=== PATIENT | female | born 1955 | race African-American/Black ===

== ENCOUNTER 2017-05-14 09:04 | Emergency (ER) | payer OTHER | END 2017-05-14 09:45 | disposition home or self-care (01) | LOC: MADERS 09:04 | DX: S39.012A Strain of muscle, fascia and tendon of lower back, initial encounter (principal); M19.071 Primary osteoarthritis, right ankle and foot; H65.01 Acute serous otitis media, right ear; I10 Essential (primary) hypertension; F32.9 Major depressive disorder, single episode, unspecified; Z79.899 Other long term (current) drug therapy; X58.XXXA Exposure to other specified factors, initial encounter | CPT/HCPCS: 99283 ==

== ENCOUNTER 2017-10-20 08:06 | Emergency (ER) | payer OTHER ==
[2017-10-20] MEDS ORDERED: Benzonatate 100 MG CAP ONE (09:44)
[2017-10-20] MEDS ORDERED: Dexamethasone 4 MG TAB ONE (09:44)
[2017-10-20] MEDS ORDERED: HYDROcodone/Acetaminophen 5/325 mg Tablet ONE (09:44)
--- NOTE | 2017-10-20 10:40 | RAD ---
TWO VIEW CHEST: INDICATIONS: Cough. COMPARISON: 12/21/2015 FINDINGS: The lungs are clear. The cardiac silhouette is at the upper limits of normal in size. No effusion o r discrete pneumothorax. The osseous structures are intact. IMPRESSION: No focal consolidation. POS: [facility]
== END 2017-10-20 09:45 | disposition home or self-care (01) ==
LOC: MADERS 08:06
DX: J06.9 Acute upper respiratory infection, unspecified (principal); Z79.899 Other long term (current) drug therapy
CPT/HCPCS: 71046; J8540

== ENCOUNTER 2020-06-24 11:45 | Outpatient (CLI) | payer OTHER ==
--- NOTE | 2020-06-24 12:07 | RAD ---
XR Knee Lt 3 View: 06/24/2020 11:51 AM CLINICAL INDICATION: Chronic left knee pain COMPARISON: None. FINDINGS: Bones: No acute fracture is demonstrated. Joints: There are moderate marginal osteophytes affecting the major compartments of the left knee casper nt. No joint capsular distention is evident.. Soft Tissue: No acute abnormality.. IMPRESSION: Moderate left knee osteoarthrosis. No acute fracture or subluxation demonstrated..
== END 2020-06-24 11:46 | disposition home or self-care (01) ==
LOC: MADRAD 11:45
PROVIDERS: ATTEND Family Medicine
DX: M25.562 Pain in left knee (principal); G89.29 Other chronic pain; M17.12 Unilateral primary osteoarthritis, left knee

== ENCOUNTER 2020-07-24 11:45 | Emergency (ER) | payer OTHER ==
[2020-07-24 12:21] LABS: #Basophils 0.1 thou/uL (0.0-0.2); #Eosinphils 0.1 thou/uL (0.0-0.7); #Lymphocytes 2.5 thou/uL (1.20-3.40); #Monocytes 0.6 thou/uL (0.11-0.59); #Neutrophils 3.8 thou/uL (1.40-6.50); %Eosinophils 0.9 % (0.0-10.0); %Lymphocytes 35.8 % (21.0-51.0); %Monocytes 8.3 % (0.0-10.0); %Neutrophils 54.1 % (42.0-75.0); Hemoglobin 13.4 g/dL (12.0-16.0); Mean Corpuscular HGB CONC 31.1 g/dL (32.0-36.0); Mean Corpuscular Hemoglobin 27.7 pg (27.0-31.0); Mean Corpuscular Volume 88.9 fL (78.0-98.0); Mean Platelet Volume 9.4 fL (7.4-10.4); Platelet Count 242 thou/uL (130-400); RBC Distribution Width 12.1 % (11.5-14.5); Red Blood Cell (RBC) Count 4.84 mill/uL (4.20-5.40)
--- NOTE | 2020-07-24 12:24 | RAD ---
Chest one view HISTORY: Chest pain. COMPARISON: 10/20/2017. FINDINGS: Cardiac silhouette and pulmonary vasculature are unremarkable. Mediastinum is midline. No c onfluent airspace consolidation or evidence of pneumothorax. IMPRESSION : No abnormalities are demonstrated.
[2020-07-24 12:35] LABS: ALT (SGPT) 13 U/L (8-55); AST (SGOT) 10 U/L (5-34); Albumin 4.3 g/dL (3.4-4.8); Alkaline Phosphatase 75 U/L (40-110); Anion Gap 17 mmol/L (10-20); BUN (Urea Nitrogen) 9 mg/dL (9.8-20.1); Bilirubin, Total 0.6 mg/dL (0.2-1.2); Calc. Creatinine Clearance 0 mL/min (70-130); Calcium 9.3 mg/dL (7.8-10.44); Carbon Dioxide 27 mmol/L (23-31); Chloride 103 mmol/L (98-107); Estimated GFR-MDRD Greater than 90; Globulin 3.2 g/dL (2.4-3.5); Glucose 106 mg/dL (80-115); Potassium 3.7 mmol/L (3.5-5.1); Protein, Total 7.5 g/dL (6.0-8.3); Sodium 143 mmol/L (136-145)
== END 2020-07-24 13:18 | disposition home or self-care (01) ==
LOC: MADERS 11:45
DX: R07.2 Precordial pain (principal); I10 Essential (primary) hypertension; K21.9 Gastro-esophageal reflux disease without esophagitis; Z79.899 Other long term (current) drug therapy
CPT/HCPCS: 71045; 80053; 84484; 85025; 93005

== ENCOUNTER 2021-02-15 18:57 | Emergency (ER) | payer OTHER ==
[2021-02-15] MEDS ORDERED: Bacitracin 1 PK ONE ×2 (20:22→20:40)
[2021-02-15] MEDS ORDERED: Boostrix 0.5 ML (Tdap) VIAL ONE (20:22)
[2021-02-15] MEDS ORDERED: Lidocaine 1% w/Epinephrine 1:100K 20 ML VIAL ONE (20:22)
== END 2021-02-15 21:01 | disposition home or self-care (01) ==
LOC: MADERS 18:57
DX: S01.01XA Laceration without foreign body of scalp, initial encounter (principal); E78.5 Hyperlipidemia, unspecified; I10 Essential (primary) hypertension; F17.220 Nicotine dependence, chewing tobacco, uncomplicated; K21.9 Gastro-esophageal reflux disease without esophagitis; Z79.899 Other long term (current) drug therapy; W18.30XA Fall on same level, unspecified, initial encounter
CPT/HCPCS: 12002; 70450; 72125; 90471; 90715

== ENCOUNTER 2021-02-26 08:42 | Emergency (ER) | payer OTHER | END 2021-02-26 09:30 | disposition home or self-care (01) | LOC: MADERS 08:42 | DX: M79.622 Pain in left upper arm (principal); S01.01XD Laceration without foreign body of scalp, subsequent encounter; K21.9 Gastro-esophageal reflux disease without esophagitis; E78.5 Hyperlipidemia, unspecified; I10 Essential (primary) hypertension; F17.220 Nicotine dependence, chewing tobacco, uncomplicated; Z79.899 Other long term (current) drug therapy; X58.XXXD Exposure to other specified factors, subsequent encounter | CPT/HCPCS: 99283 ==

== ENCOUNTER 2022-02-20 09:49 | Outpatient (CLI) | payer OTHER | END 2022-02-20 09:50 | disposition home or self-care (01) | LOC: MADULT 09:49 | PROVIDERS: ATTEND Family Medicine | DX: N95.0 Postmenopausal bleeding (principal); R93.89 Abnormal findings on diagnostic imaging of other specified body structures | CPT/HCPCS: 76856 ==

== ENCOUNTER 2022-10-24 11:58 | Outpatient (CLI) | payer OTHER | END 2022-10-24 11:59 | LOC: MADLABBHPM 11:58 → MADLAB 11:59 | PROVIDERS: ATTEND Family Medicine | DX: Z01.419 Encounter for gynecological examination (general) (routine) without abnormal findings (principal) | CPT/HCPCS: 87624; 88175 ==

== ENCOUNTER 2024-07-29 09:39 | Outpatient (CLI) | payer OTHER | END 2024-07-29 09:40 | disposition home or self-care (01) | LOC: MADRAD 09:39 | PROVIDERS: ATTEND Nurse Practitioner Family | DX: M79.672 Pain in left foot (principal) ==